=== PATIENT | male | born 1985 | race Caucasian/White ===

== ENCOUNTER 2019-09-29 19:36 | Emergency (ER) | payer OTHER ==
[~2019-09-29] VITALS: Ht 177.8 cm; Wt 70.3 kg
[~2019-09-29 19:36] MED LIST: CEPH500 PO; Flomax0.4 MG PO; HYDR1TAB94 PO; NAPR500 PO; OXYACE5T PO; OXYB5 PO; PHENA100 PT; Phenergan25 M1 PO; RXOXYACE PO; UNKNOWN PAIN MED
== END 2019-09-29 21:35 | disposition home or self-care (01) ==
LOC: ER 19:36
DX: S01.81XA Laceration without foreign body of other part of head, initial encounter (principal); S01.511A Laceration without foreign body of lip, initial encounter; Z23 Encounter for immunization; W45.8XXA Other foreign body or object entering through skin, initial encounter
CPT/HCPCS: 12011; 90471; 90714; 99282-25

== ENCOUNTER 2024-03-09 04:50 | Emergency (ER) | payer OTHER ==
[~2024-03-09] VITALS: Ht 175.3 cm; Wt 72.6 kg
[2024-03-09] MEDS ORDERED: FentaNYL Citrate 50 MCG/ML 2 ML Injection IV ONE (05:30)
[2024-03-09 05:31] LABS: BASOPHILS ABSOLUTE AUTO 0.01 K/mm3 (0.00-0.23); BASOPHILS PERCENT AUTO 0 % (0-2); EOSINOPHILS ABSOLUTE AUTO 0.02 K/mm3 (0.00-0.68); EOSINOPHILS PERCENT AUTO 0 % (0-6); Hematocrit 45.7 % (37.0-53.0); Hemoglobin 16.4 g/dL (13.5-17.5); IMMATURE GRAN ABSOLUTE AUTO 0.01 K/mm3 (0.00-0.10); IMMATURE GRAN PERCENT AUTO 0 % (0-1); LYMPHOCYTES ABSOLUTE AUTO 1.54 K/mm3 (0.84-5.20); LYMPHOCYTES PERCENT AUTO 32 % (21-46); MONOCYTES ABSOLUTE AUTO 0.25 K/mm3 (0.16-1.47); MONOCYTES PERCENT AUTO 5 % (4-13); Mean Corpuscular HGB 31.8 pg (26.0-34.0); Mean Corpuscular HGB Conc 35.9 g/dL (31.5-36.5); Mean Corpuscular Volume 89 fL (80-100); Mean Platelet Volume 10.2 fL (9.1-12.4); NEUTROPHILS ABSOLUTE AUTO 2.97 K/mm3 (1.96-9.15); NEUTROPHILS PERCENT AUTO 62 % (41-73); Platelet Count 128 K/mm3 (150-400); RDW Coefficient Variation 12.2 % (11.7-14.2); RDW Standard Deviation 39.8 fL (35.1-46.3); Red Blood Cell Count 5.15 M/mm3 (4.30-5.90)
[2024-03-09] MEDS ORDERED: HYDROmorphone HCl/Pf 1MG SYR IV PRN (05:45)
[2024-03-09] MEDS ORDERED: Ondansetron HCl 2 MG / ML 2ML Vial IV ONE ×2 (05:45→05:50)
[2024-03-09 05:49] LABS: Albumin, Blood 4.1 g/dL (3.4-5.0); Albumin/Globulin Ratio 1.6 (0.8-1.8); Bilirubin, Total 0.6 mg/dL (0.1-1.0); Bun/Creatinine Ratio 15.8 (12.0-20.0); Calcium, Blood 8.9 mg/dL (8.5-10.1); Creatinine, Blood 1.14 mg/dL (0.60-1.20); Globulin, Blood 2.5 g/dL (2.2-4.0); Potassium, Blood 3.5 mmol/L (3.5-5.5); Total Protein, Blood 6.6 g/dL (6.4-8.2)
[2024-03-09] MEDS ORDERED: Ketorolac Tromethamine 15mg Vial IV ONE (06:15)
[2024-03-09] MEDS ORDERED: NS 1,000 ML IV SCH (06:15)
[2024-03-09] MEDS ORDERED: Tamsulosin HCl 0.4 MG Cap PO ONE (06:15)
[2024-03-09 08:09] LABS: Source, Urine Clean Catch
[2024-03-09 08:18] LABS: Appearance, Urine Clear (Clear); Bilirubin, Urine Neg (Neg); Blood, Urine 5+ (Neg); Color, Urine Yellow (P-Yellow); Glucose Qualitative, Urine Neg (Neg); Ketones, Urine Neg (Neg); Leukocyte Esterase, Urine Neg (Neg); Nitrite, Urine Neg (Neg); Protein, Urine 2+ (Neg); Urobilinogen, Urine NORM (Normal)
[2024-03-09 08:25] LABS: Bacteria Rare /hpf; Red Blood Cells, Urine 25-50 /hpf (0-2); Squamous Epithelial Cells Rare /hpf (Few); White Blood Cells, Urine 0-2 /hpf (0-5)
[2024-03-09] MEDS ORDERED: Flomax0.4 MG PO (08:58)
[2024-03-09] MEDS ORDERED: IBUP600 PO (08:58)
[2024-03-09] MEDS ORDERED: ONDA4ODT MM (08:58)
[2024-03-09] MEDS ORDERED: Roxicodone5 MG PO (08:58)
[2024-03-09 09:09] VITALS: BP 133/87
== END 2024-03-09 09:17 | disposition home or self-care (01) ==
LOC: ER 04:50
PROVIDERS: Emergency Medicine
DX: N13.2 Hydronephrosis with renal and ureteral calculous obstruction (principal)
CPT/HCPCS: 74177; 80053; 81001; 85025; 96361; 96374-59; 96375; 96376; 99284-25; A9270; J1170; J1885; J2405; J3010; J7030; Q9967

== ENCOUNTER 2024-03-19 18:48 | Emergency (ER) | payer OTHER ==
[~2024-03-19] VITALS: Ht 177.8 cm; Wt 72.6 kg
[~2024-03-19 18:48] MED LIST changes: +IBUP600 PO; +ONDA4ODT MM; +Roxicodone5 MG PO
[2024-03-19] MEDS ORDERED: Acetaminophen 500 MG Tab PO ONE (19:05)
[2024-03-19 21:24] VITALS: BP 115/76
== END 2024-03-19 21:25 | disposition home or self-care (01) ==
LOC: ER 18:48
DX: M54.2 Cervicalgia (principal); M54.9 Dorsalgia, unspecified; V43.52XA Car driver injured in collision with other type car in traffic accident, initial encounter; Z79.899 Other long term (current) drug therapy
CPT/HCPCS: 72125; 99284-25; A9270